=== PATIENT | female | born 2005 | race Caucasian/White ===

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

== ENCOUNTER → 2023-06-03 | Outpatient (RCR) | payer OTHER ==
[~2023-06-03] MED LIST: APRI 0.15 MG-0.1 TAB PO; ZOFRAN ODT4 MG PO
== END | disposition home or self-care (01) ==
LOC: WSST
DX: R41.3 Other amnesia (principal); R48.9 Unspecified symbolic dysfunctions

== ENCOUNTER 2023-07-01 09:45 | Outpatient (RCR) | payer OTHER | END 2023-07-03 | disposition home or self-care (01) | LOC: WSST | DX: R41.3 Other amnesia (principal); R48.9 Unspecified symbolic dysfunctions ==

== ENCOUNTER 2023-07-15 09:45 | Outpatient (RCR) | payer OTHER | END 2023-08-03 | disposition home or self-care (01) | LOC: WSST | DX: R41.3 Other amnesia (principal); R48.9 Unspecified symbolic dysfunctions; S06.0X0S Concussion without loss of consciousness, sequela ==

== ENCOUNTER 2023-09-02 16:00 | Outpatient (RCR) | payer OTHER | END 2023-09-03 | disposition home or self-care (01) | LOC: WSST | DX: R41.3 Other amnesia (principal); R48.9 Unspecified symbolic dysfunctions ==